=== PATIENT | female | born 1965 | race Caucasian/White ===

== ENCOUNTER 2023-02-11 23:22 | Emergency (ER) | payer SELFPAY ==
[2023-02-11 23:27] VITALS: BP 140/92; PULSE 96; RESP 16; TEMP 36.3; O2SAT 99; BMI 52.5
--- NOTE | 2023-02-12 | RAD_ITS ---
INDICATION: pain EXAMINATION/TECHNIQUE: X-RAY - XR Hip Unilateral with Pelvis when performed; 2-3 Views COMPARISON: FINDINGS: PELVIC BONES: No displaced fracture, destructive or sclerotic lesions. Note that overlapping bowel shadows may however obscure fine detail. Sacroiliac joints demonstrate moderate degenerative changes. No widening of the pubic symphysis. HIPS: Mild degenerative arthrosis right hip. Severe degenerative arthrosis left hip . SOFT TISSUES: No soft tissue swelling or gas. RAD/HIP, UNI W/ Pelvis 2-3 Views IMPRESSION: Severe degenerative arthrosis in the left hip . Electronically Signed: Serena Daniels MD at 0:47 EDT ,
--- NOTE | 2023-02-12 00:02 | EX.ED.DYSGE1 ---
HPI History of Present Illness Chief Complaint: Lower Extremity Injury PFSH PFS Home Medications Cetirizine Hcl [Zyrtec] 10 mg PO DAILY ##14 02/14/15 [Rx Last Taken Unknown] famotidine 20 mg tablet 20 mg PO BID ##28 02/14/15 [Rx Last Taken Unknown] sucralfate 1 gram tablet 1 g PO 4X/DAY ##60 02/14/15 [Rx Last Taken Unknown] Allergy/AdvReac Type Severity Reaction Status Date / Time Penicillins Allergy Itching Verified 02/11/23 23:31 Social History Smoking Status: Never smoker EXAM Physical Exam Const Vital Signs: 02/11/23 23:27 Temperature 97.3 F L Temperature Source Temporal Pulse Rate 96 Respiratory Rate 16 Blood Pressure 140/92 H Blood Pressure Mean 108 Pulse Ox 99 Oxygen Delivery Method Room Air [facility] [place] Medical decision making narrative: HISTORY OF PRESENT ILLNESS: 57-year-old female here with years worth of left hip pain. States been worse since Friday giving her physically demanding and taxing job. Denies any falls or other trauma. Denies a history of surgery to the left hip. REVIEW OF SYSTEMS: Pertinent positives: [Left hip pain Pertinent negatives: Bowel or bladder incontinence PHYSICAL EXAM: Nursing triage notes reviewed, Vital signs reviewed Constitutional: please see mdm HENT: MMM Eyes: Pupils equal round and reactive to light, Extraocular muscles intact Neck: No stridor, no JVD, full neck ROM Lungs: Clear to auscultation, No wheezing or rales. No increased work of breathing, no conversational dyspnea, no accessory muscle use, no nasal flaring. No respiratory distress noted Heart: Regular rate and rhythm, No murmurs, No rubs and No gallops, 2+ distal pulses (radial, femoral, posterior tibial) in all extremities Abdomen: Soft, there is no tenderness, rigidity, rebound or guarding, no obvious peritoneal signs, no palpable pulsatile abdominal masses, no auscultated abdominal bruit : No CVAT Extremities: No edema, painful range of motion with hip internal/external rotation., Extremities are equal in length there is no edema to left lower extremity. Left lower extremities warm and well-perfused. Compartments are soft Neuro: Intact sensation L1-S1 dermatomal distributions. Intact 5/5 strength in hip flexion (T12-L3). Knee extension (L2-L4). Ankle dorsiflexion (L4-L5). Ankle plantar flexion (S1). Great toe extension (L5). 2+ patellar and Achilles DTRs. Skin: No rash or lesions noted MEDICAL DECISION MAKING: Chief Complaint: Left hip pain External records reviewed: No recent advanced imaging Factors affecting care: Obese ALL IMAGES (IF OBTAINED) HAVE BEEN PERSONALLY REVIEWED AND INTERPRETED BY MYSELF. X-ray of the left hip evaluated myself shows no evidence of obvious fracture dislocation. MDM Narrative: The patient was hemodynamically stable, afebrile, nontoxic-appearing. Concern for fracture dislocation. Obtained an x-ray which showed hip osteoarthritis.For septic arthritis at this time. The patient and/or family, caregivers express understanding. The patient and/or family, caregivers agrees with the plan. Shared decision making: I will have a discussion with the patient and or visitors regarding risk/benefits of further testing or admission. They will be made aware of of the risk/benefits inherent in this decision they will be given the opportunity to voice understanding. Total critical care time today provided was at least 0 minutes. This excludes separately billable procedures. Critical care time (if documented) is secondary to the patient having high probability of clinically significant/life threatening deterioration in the patient's condition which required my urgent intervention. Radiography Diagnostic Testing: Clinical Impression(s) from Imaging Studies Hip/Pelvis X-Ray 02/12/23 00:00 IMPRESSION: Severe degenerative arthrosis in the left hip . Electronically Signed: Serena Daniels MD at 0:47 EDT Reading Location ID and State: [facility] / [place] Tel , Service support , Discharge Plan Triage Chief Complaint: Lower Extremity Injury ED Provider: Mani Juarez Dx/Rx/DC Orders Clinical Impression: Hip osteoarthritis Instructions: Arthritis: Exercise Prescriptions: No Action Cetirizine Hcl [Zyrtec] 10 MG tablet 10 mg PO DAILY Qty: 14 0RF sucralfate 1 GM tablet 1 g PO 4X/DAY Qty: 60 0RF famotidine 20 MG tablet 20 mg PO BID Qty: 28 0RF Primary Care Provider: Care Physician,No Primary Referrals: Lobo Trinidad DO [Med Staff - Active Staff] - Activity Restrictions/Additional Instructions: Thank you for trusting us with your care today! Please take Tylenol (2 pills, 650 mg), ibuprofen (2 pills, 400 mg) every 6 hours as needed for pain and fever control. Please return to the emergency department if your symptoms change or worsen. Please follow with your primary care physician for further outpatient evaluation and management. Disposition Disposition: Home, Self Care Discharge Date/Time: 02/12/23 02:09
== END 2023-02-12 02:09 | disposition home or self-care (01) ==
PROVIDERS: Emergency Provider Emergency Medicine; Visit Provider Emergency Medicine
DX: M16.12 Unilateral primary osteoarthritis, left hip (principal); Z68.43 Body mass index [BMI] 50.0-59.9, adult; E66.9 Obesity, unspecified
CPT/HCPCS: 73502; 99282